=== PATIENT | female | born 1980 | race African-American/Black ===

== ENCOUNTER 2019-02-07 15:02 | Emergency (ER) | payer MEDICAID ==
[~2019-02-07] VITALS: Ht 167.6 cm; Wt 55.0 kg
[2019-02-07] MEDS ORDERED: MORPHINE SULFATE 4 MG/ML CPJ (NOT FOR IM USE) IV ONE (15:15)
[2019-02-07] MEDS ORDERED: KETOROLAC 30MG/ML VIAL IV ONE (15:15)
[2019-02-07 15:43] LABS: BASOPHILS % 0.2 % (0.0-2.0); EOSINOPHILS % 0.5 % (0.0-5.0); HEMATOCRIT. 42.3 % (36.0-48.0); HEMOGLOBIN. 14.5 g/dL (12.0-16.0); LYMPHOCYTES % 30.9 % (20.0-50.0); MEAN CORPUSCULAR HEMOGLOBIN 32.7 pg (28.0-32.0); MEAN CORPUSCULAR VOLUME 95.1 fL (81.0-99.0); NEUTROPHILS % 63.4 % (40.0-76.0); PLATELET 189 x1000/uL (130-400); RED BLOOD CELL COUNT 4.45 mill/uL (4.2-5.4)
[2019-02-07 15:49] LABS: CHLORIDE 99 mEq/L (98-107)
[2019-02-07 18:10] VITALS: BP 115/78
== END 2019-02-07 18:10 | disposition home or self-care (01) ==
LOC: ER 15:02
DX: R10.0 Acute abdomen (principal); R03.0 Elevated blood-pressure reading, without diagnosis of hypertension
CPT/HCPCS: 36415; 76830; 76856; 80053; 81025; 85025; 86850; 86900; 86901; 96374; 96375; 99284; J1885; J2270

== ENCOUNTER 2019-03-07 01:53 | Inpatient (IN) | payer MEDICAID ==
[~2019-03-07] VITALS: Ht 163.2 cm; Wt 55.0 kg
[2019-03-07] MEDS ORDERED: KETOROLAC 30MG/ML VIAL IV STA (02:59)
[2019-03-07] MEDS ORDERED: ONDANSETRON HCL 4MG/2ML INJ IV STA (02:59)
[2019-03-07] MEDS ORDERED: SODIUM CHLORIDE 0.9% 1,000 ML IV ONE (02:59)
[2019-03-07 03:41] LABS: HEMATOCRIT. 52.8 % (36.0-48.0); HEMOGLOBIN. 17.5 g/dL (12.0-16.0); MEAN CORPUSCULAR HEMOGLOBIN 31.2 pg (28.0-32.0); MEAN CORPUSCULAR VOLUME 93.8 fL (81.0-99.0); MEAN PLATELET VOLUME 8.8 fl (7.4-10.4); PLATELET 188 x1000/uL (130-400); RED BLOOD CELL COUNT 5.62 mill/uL (4.2-5.4); RED CELL DISTRIBUTION WIDTH 15.1 % (11.6-14.6)
[2019-03-07 03:44] LABS: CHLORIDE 108 mEq/L (98-107)
[2019-03-07 03:49] LABS: ETHANOL BLOOD < 10 mg/dL
[2019-03-07 03:56] LABS: HCG SCREEN NEGATIVE
[2019-03-07 04:33] LABS: CREATINE KINASE 145 IU/L (26-192)
[2019-03-07 04:40] LABS: PLATELET ESTIMATE NORMAL
[2019-03-07] MEDS ORDERED: MORPHINE SULFATE 2 MG/ML CPJ (NOT FOR IM USE) IV PRN (08:15)
[2019-03-07] MEDS ORDERED: HYDRALAZINE 20MG/ML VIAL IV PRN (08:15)
[2019-03-07] MEDS ORDERED: HYDRALAZINE 20MG/ML VIAL IV NR (08:15)
[2019-03-07] MEDS ORDERED: ONDANSETRON HCL 4MG/2ML INJ IV PRN (08:15)
[2019-03-07 08:55] VITALS: BP 163/101
[2019-03-07] MEDS: ENOXAPARIN 30MG/0.3ML SYR SUBCUT SCH (10:51)
[2019-03-07] MEDS: CEFTRIAXONE 1 G PREMIX 50 ML IV SCH (10:51)
[2019-03-07] MEDS: SODIUM CHLORIDE 0.9% 1,000 ML IV SCH ×2 (10:52→21:52)
[2019-03-07 12:00] VITALS: BP 148/102
[2019-03-07 16:00] VITALS: BP 148/99
[2019-03-07 20:00] VITALS: BP 149/97
[2019-03-07] MEDS: AMLODIPINE 5MG TABLET PO SCH (20:23)
[2019-03-07 22:05] VITALS: BP 149/97
[2019-03-07] MEDS ORDERED: HYDR50TA55 MT (22:37)
[2019-03-07] MEDS ORDERED: QUET300T19 MT (22:37)
[2019-03-07] MEDS ORDERED: FLUO-124 MT (22:37)
[2019-03-07 22:54] LABS: CLARITY URINE TURBID (CLEAR); COLOR URINE DARK YELLOW (YELLOW); KETONES URINE 1+ (NEGATIVE); LEUKOCYTE ESTERASE URINE 2+ (NEGATIVE); NITRITE URINE NEGATIVE (NEGATIVE); OCCULT BLOOD URINE 2+ (NEGATIVE); PROTEIN URINE 3+ (NEGATIVE); SPECIFIC GRAVITY URINE 1.018 (1.005-1.030)
[2019-03-07 23:11] LABS: *AMPHETAMINES SCREEN URINE NEGATIVE (NEGATIVE); *BARBITURATES SCREEN URINE NEGATIVE (NEGATIVE); *BENZODIAZEPINES SCREEN URINE NEGATIVE (NEGATIVE); *COCAINE SCREEN URINE NEGATIVE (NEGATIVE)
[2019-03-07 23:12] LABS: CANNABINOID URINE SCREEN NEGATIVE (NEGATIVE); METHADONE URINE SCREEN NEGATIVE (NEGATIVE); PHENCYCLIDINE URINE SCREEN NEGATIVE (NEGATIVE)
[2019-03-07 23:14] LABS: OPIATES URINE SCREEN NEGATIVE (NEGATIVE)
[2019-03-08] VITALS: BP 151/96
[2019-03-08 04:00] VITALS: BP 158/95
[2019-03-08] MEDS: SODIUM CHLORIDE 0.9% 1,000 ML IV SCH ×4 (04:28→22:21)
[2019-03-08 08:00] VITALS: BP 153/96
[2019-03-08 08:11] LABS: EOSINOPHILS % 0.2 % (0.0-5.0); HEMOGLOBIN. 14.1 g/dL (12.0-16.0); LYMPHOCYTES % 11.1 % (20.0-50.0); MEAN CORPUSCULAR HEMOGLOBIN 31.4 pg (28.0-32.0); MEAN CORPUSCULAR VOLUME 93.7 fL (81.0-99.0); MEAN PLATELET VOLUME 8.9 fl (7.4-10.4); MONOCYTES % 7.4 % (2.0-8.0); NEUTROPHILS % 80.3 % (40.0-76.0); PLATELET 134 x1000/uL (130-400); RED BLOOD CELL COUNT 4.48 mill/uL (4.2-5.4); RED CELL DISTRIBUTION WIDTH 14.9 % (11.6-14.6)
[2019-03-08] MEDS ORDERED: LIDOCAINE HCL/PF 1% 2ML VIAL ONE (08:36)
[2019-03-08] MEDS: FOLIC ACID 1MG TABLET PO SCH (08:44)
[2019-03-08] MEDS: MULTIVITAMINS,THER W-MINERALS TABLET PO SCH (08:45)
[2019-03-08] MEDS: THIAMINE HCL 100MG TABLET PO SCH (08:45)
[2019-03-08] MEDS: AMLODIPINE 5MG TABLET PO SCH ×2 (08:45→20:41)
[2019-03-08] MEDS: ENOXAPARIN 30MG/0.3ML SYR SUBCUT SCH (08:46)
[2019-03-08 09:03] LABS: PHOSPHORUS 0.5 mg/dL (2.5-4.9)
[2019-03-08] MEDS: CEFTRIAXONE 1 G PREMIX 50 ML IV SCH (10:26)
[2019-03-08] MEDS: CITRIC ACID/SODIUM CITRATE SOLN 15ML UDC PO SCH ×3 (10:51→16:59)
[2019-03-08 10:55] LABS: BG BASE EXCESS -12.3 mmol/L (-2.0-2.0); BG DEOXYHEMOGLOBIN 1.2 % (0.0-5.0); BG FRACTION INSPIRED OXYGEN 21; BG HCO3 ACT 10.3 mmol/L (22.0-26.0); BG METHEMOGLOBIN 0.2 % (0.0-1.5); BG OXYGEN SATURATION 98.8 % (92.0-98.5); BG OXYHEMOGLOBIN 97.6 % (94.0-97.0); BG PH 7.375 (7.350-7.450); BG SAMPLE SITE RIGHT RADIAL; BG TOTAL HEMOGLOBIN 13.8 g/dL (12.0-18.0); BG VENT MODE ROOM AIR
[2019-03-08] MEDS ORDERED: SODIUM PHOS,M-BASIC-D-BASIC 20 MM in DEXT 5% WATER 243.3333 ML IV NR (11:30)
[2019-03-08 12:00] VITALS: BP 157/103
[2019-03-08] MEDS ORDERED: MAGNESIUM 4 G PREMIX 100 ML IV NR (12:00)
[2019-03-08 16:00] VITALS: BP 140/97
[2019-03-08 20:00] VITALS: BP 116/93
[2019-03-09 00:38] VITALS: BP 150/102
[2019-03-09 04:00] VITALS: BP 126/85
[2019-03-09 06:40] LABS: BASOPHILS % 1.3 % (0.0-2.0); EOSINOPHILS % 2.6 % (0.0-5.0); HEMATOCRIT. 36.6 % (36.0-48.0); HEMOGLOBIN. 12.7 g/dL (12.0-16.0); MEAN CORPUSCULAR HEMOGLOBIN 31.8 pg (28.0-32.0); MEAN CORPUSCULAR VOLUME 91.9 fL (81.0-99.0); MEAN PLATELET VOLUME 8.8 fl (7.4-10.4); MONOCYTES % 7.5 % (2.0-8.0); NEUTROPHILS % 67.6 % (40.0-76.0); PLATELET 118 x1000/uL (130-400); RED BLOOD CELL COUNT 3.98 mill/uL (4.2-5.4); RED CELL DISTRIBUTION WIDTH 14.5 % (11.6-14.6)
[2019-03-09 07:20] LABS: PHOSPHORUS 1.5 mg/dL (2.5-4.9)
[2019-03-09 08:00] VITALS: BP 140/90
[2019-03-09] MEDS: CITRIC ACID/SODIUM CITRATE SOLN 15ML UDC PO SCH ×3 (09:11→17:27)
[2019-03-09] MEDS: AMLODIPINE 5MG TABLET PO SCH ×2 (09:11→20:56)
[2019-03-09] MEDS: ENOXAPARIN 30MG/0.3ML SYR SUBCUT SCH (09:12)
[2019-03-09] MEDS: SODIUM CHLORIDE 0.9% 1,000 ML IV SCH ×2 (09:13→21:26)
[2019-03-09] MEDS: FOLIC ACID 1MG TABLET PO SCH (09:30)
[2019-03-09] MEDS: THIAMINE HCL 100MG TABLET PO SCH (09:30)
[2019-03-09] MEDS: MULTIVITAMINS,THER W-MINERALS TABLET PO SCH (09:30)
[2019-03-09] MEDS ORDERED: POTASSIUM CHLORIDE 20MEQ/PACKET PO NR (10:30)
[2019-03-09] MEDS ORDERED: MAGNESIUM 2 G PREMIX 50 ML IV NR (11:00)
[2019-03-09] MEDS: CEFTRIAXONE 1 G PREMIX 50 ML IV SCH (11:01)
[2019-03-09 12:00] VITALS: BP 121/79
[2019-03-09] MEDS ORDERED: POTASSIUM PHOS,M-BASIC-D-BASIC 15 MMOL in DEXTROSE 5% WATER 250 ML IV NR (14:00)
[2019-03-09 16:00] VITALS: BP 130/89
[2019-03-09 18:54] LABS: CLARITY URINE CLEAR (CLEAR); COLOR URINE YELLOW (YELLOW); KETONES URINE NEGATIVE (NEGATIVE); LEUKOCYTE ESTERASE URINE TRACE (NEGATIVE); NITRITE URINE NEGATIVE (NEGATIVE); OCCULT BLOOD URINE 2+ (NEGATIVE); PH URINE 5.5 (4.5-8.0); PROTEIN URINE NEGATIVE (NEGATIVE); SPECIFIC GRAVITY URINE 1.006 (1.005-1.030); UROBILINOGEN URINE 0.2 E.U./dL (0.2-1.0)
[2019-03-09 20:00] VITALS: BP 129/86
[2019-03-10] VITALS (17 sets, daily range): BP systolic 108–130; BP diastolic 46–92
[2019-03-10 07:24] LABS: PARTIAL THROMBOPLASTIN TIME 29.1 sec (23.4-31.0); PROTHROMBIN TIME 10.5 sec (9.6-11.0)
[2019-03-10 07:26] LABS: BASOPHILS % 1.1 % (0.0-2.0); EOSINOPHILS % 5.2 % (0.0-5.0); HEMATOCRIT. 33.5 % (36.0-48.0); HEMOGLOBIN. 11.5 g/dL (12.0-16.0); LYMPHOCYTES % 29.4 % (20.0-50.0); MEAN CORPUSCULAR HEMOGLOBIN 31.8 pg (28.0-32.0); MEAN CORPUSCULAR VOLUME 92.8 fL (81.0-99.0); MEAN PLATELET VOLUME 9.2 fl (7.4-10.4); MONOCYTES % 7.8 % (2.0-8.0); NEUTROPHILS % 56.5 % (40.0-76.0); PLATELET 132 x1000/uL (130-400); RED BLOOD CELL COUNT 3.61 mill/uL (4.2-5.4); RED CELL DISTRIBUTION WIDTH 14.6 % (11.6-14.6)
[2019-03-10] MEDS ORDERED: FENTANYL CITRATE/PF 50MCG/ML 2ML VIAL ONE (07:58)
[2019-03-10] MEDS: FOLIC ACID 1MG TABLET PO SCH (08:09)
[2019-03-10] MEDS: CITRIC ACID/SODIUM CITRATE SOLN 15ML UDC PO SCH ×3 (08:09→17:26)
[2019-03-10] MEDS: THIAMINE HCL 100MG TABLET PO SCH (08:09)
[2019-03-10] MEDS: AMLODIPINE 5MG TABLET PO SCH ×2 (08:09→22:02)
[2019-03-10] MEDS: SODIUM CHLORIDE 0.9% 1,000 ML IV SCH ×2 (08:10→13:35)
[2019-03-10] MEDS: MULTIVITAMINS,THER W-MINERALS TABLET PO SCH (08:12)
[2019-03-10] MEDS ORDERED: LIDOCAINE HCL 1% 20ML VIAL (Pyxis) INJ ONE (08:13)
[2019-03-10] MEDS ORDERED: SODIUM BICARBONATE 4% (2.4MEQ) 5ML VIAL IV ONE (08:13)
[2019-03-10 08:34] LABS: PHOSPHORUS 2.8 mg/dL (2.5-4.9)
[2019-03-10] MEDS ORDERED: FENTANYL CITRATE/PF 50MCG/ML 2ML VIAL IV ONE (08:45)
[2019-03-10] MEDS: CEFTRIAXONE 1 G PREMIX 50 ML IV SCH (10:50)
[2019-03-10 12:33] LABS: HEMATOCRIT 33.5 % (36.0-48.0); HEMOGLOBIN 11.1 g/dL (12.0-16.0)
[2019-03-11] VITALS: BP 110/80
[2019-03-11 04:00] VITALS: BP 114/80
[2019-03-11 08:00] VITALS: BP 104/76
[2019-03-11 08:12] LABS: BASOPHILS % 1.4 % (0.0-2.0); EOSINOPHILS % 6.2 % (0.0-5.0); HEMATOCRIT. 30.8 % (36.0-48.0); HEMOGLOBIN. 10.4 g/dL (12.0-16.0); LYMPHOCYTES % 25.9 % (20.0-50.0); MEAN CORPUSCULAR HEMOGLOBIN 31.5 pg (28.0-32.0); MEAN CORPUSCULAR VOLUME 93.4 fL (81.0-99.0); MEAN PLATELET VOLUME 9.1 fl (7.4-10.4); NEUTROPHILS % 56.5 % (40.0-76.0); PLATELET 138 x1000/uL (130-400); RED BLOOD CELL COUNT 3.29 mill/uL (4.2-5.4); RED CELL DISTRIBUTION WIDTH 14.4 % (11.6-14.6)
[2019-03-11 08:14] LABS: PHOSPHORUS 3.4 mg/dL (2.5-4.9)
[2019-03-11] MEDS: AMLODIPINE 5MG TABLET PO SCH ×2 (08:23→21:34)
[2019-03-11] MEDS: FOLIC ACID 1MG TABLET PO SCH (08:44)
[2019-03-11] MEDS: MULTIVITAMINS,THER W-MINERALS TABLET PO SCH (08:44)
[2019-03-11] MEDS: CITRIC ACID/SODIUM CITRATE SOLN 15ML UDC PO SCH ×3 (08:44→17:48)
[2019-03-11] MEDS: THIAMINE HCL 100MG TABLET PO SCH (08:44)
[2019-03-11] MEDS ORDERED: POTASSIUM CHLORIDE 20MEQ TABLET SR PO SCH (09:00)
[2019-03-11] MEDS: CEFTRIAXONE 1 G PREMIX 50 ML IV SCH (09:53)
[2019-03-11] MEDS: SODIUM CHLORIDE 0.9% 1,000 ML IV SCH ×2 (09:54→17:49)
[2019-03-11] MEDS ORDERED: POTASSIUM CHLORIDE INJ 40 MEQ in DEXT 5% WATER 250 ML IV SCH (10:00)
[2019-03-11 12:00] VITALS: BP 187/83
[2019-03-11 16:00] VITALS: BP 107/81
[2019-03-11 20:00] VITALS: BP 123/57
[2019-03-12] VITALS: BP 102/66
[2019-03-12] MEDS: SODIUM CHLORIDE 0.9% 1,000 ML IV SCH ×4 (00:04→20:18)
[2019-03-12 04:00] VITALS: BP 116/53
[2019-03-12 06:36] LABS: EOSINOPHILS % 6.1 % (0.0-5.0); HEMATOCRIT. 29.3 % (36.0-48.0); MEAN CORPUSCULAR HEMOGLOBIN 31.7 pg (28.0-32.0); MEAN CORPUSCULAR VOLUME 92.9 fL (81.0-99.0); MEAN PLATELET VOLUME 8.9 fl (7.4-10.4); MONOCYTES % 13.6 % (2.0-8.0); NEUTROPHILS % 52.3 % (40.0-76.0); PLATELET 200 x1000/uL (130-400); RED BLOOD CELL COUNT 3.16 mill/uL (4.2-5.4); RED CELL DISTRIBUTION WIDTH 14.2 % (11.6-14.6)
[2019-03-12 06:49] LABS: CHLORIDE 111 mEq/L (98-107)
[2019-03-12 08:00] VITALS: BP 116/72
[2019-03-12 08:07] LABS: COMPLEMENT C3 95 mg/dL (82-167)
[2019-03-12] MEDS: MULTIVITAMINS,THER W-MINERALS TABLET PO SCH (09:06)
[2019-03-12] MEDS: AMLODIPINE 5MG TABLET PO SCH ×2 (09:06→20:12)
[2019-03-12] MEDS: FOLIC ACID 1MG TABLET PO SCH (09:06)
[2019-03-12] MEDS: THIAMINE HCL 100MG TABLET PO SCH (09:06)
[2019-03-12] MEDS: CITRIC ACID/SODIUM CITRATE SOLN 15ML UDC PO SCH ×3 (09:06→17:24)
[2019-03-12] MEDS: CEFTRIAXONE 1 G PREMIX 50 ML IV SCH (10:36)
[2019-03-12 12:00] VITALS: BP 118/79
[2019-03-12 16:00] VITALS: BP 114/85
[2019-03-12 20:00] VITALS: BP 114/71
[2019-03-13] VITALS: BP 120/77
[2019-03-13] MEDS: SODIUM CHLORIDE 0.9% 1,000 ML IV SCH ×3 (02:10→10:35)
[2019-03-13 04:00] VITALS: BP 125/75
[2019-03-13 08:00] VITALS: BP 105/63
[2019-03-13] MEDS: FOLIC ACID 1MG TABLET PO SCH (09:00)
[2019-03-13] MEDS: THIAMINE HCL 100MG TABLET PO SCH (09:00)
[2019-03-13] MEDS: AMLODIPINE 5MG TABLET PO SCH (09:00)
[2019-03-13] MEDS: CITRIC ACID/SODIUM CITRATE SOLN 15ML UDC PO SCH ×2 (09:00→15:28)
[2019-03-13] MEDS: MULTIVITAMINS,THER W-MINERALS TABLET PO SCH (09:00)
[2019-03-13 09:36] LABS: HEMATOCRIT. 28.3 % (36.0-48.0); HEMOGLOBIN. 9.6 g/dL (12.0-16.0); MEAN CORPUSCULAR HEMOGLOBIN 31.5 pg (28.0-32.0); MEAN PLATELET VOLUME 8.6 fl (7.4-10.4); PLATELET 292 x1000/uL (130-400); RED BLOOD CELL COUNT 3.05 mill/uL (4.2-5.4); RED CELL DISTRIBUTION WIDTH 14.7 % (11.6-14.6)
[2019-03-13 10:02] LABS: CHLORIDE 109 mEq/L (98-107)
[2019-03-13] MEDS: CEFTRIAXONE 1 G PREMIX 50 ML IV SCH (10:34)
[2019-03-13 12:00] VITALS: BP 114/65
[2019-03-13 12:26] LABS: PLATELET ESTIMATE NORMAL
[2019-03-13 16:00] VITALS: BP 106/70
[2019-03-13 16:23] VITALS: BP 114/65
== END 2019-03-13 18:50 | disposition home or self-care (01) | DRG 720 ==
LOC: ER 01:53 → 5WST 04:39 → ENRESERV 07:50
PROVIDERS: ADMIT Internal Medicine; ATTEND Internal Medicine
PROC: 0TB14ZX Excision of Left Kidney, Percutaneous Endoscopic Approach, Diagnostic (ICD-10-PCS; principal; 2019-03-10)
DX: A41.9 Sepsis, unspecified organism (principal); N17.0 Acute kidney failure with tubular necrosis; K85.20 Alcohol induced acute pancreatitis without necrosis or infection; E87.2 Acidosis; E11.22 Type 2 diabetes mellitus with diabetic chronic kidney disease; E83.52 Hypercalcemia; I42.9 Cardiomyopathy, unspecified; E11.65 Type 2 diabetes mellitus with hyperglycemia; E87.8 Other disorders of electrolyte and fluid balance, not elsewhere classified; F10.10 Alcohol abuse, uncomplicated; I12.9 Hypertensive chronic kidney disease with stage 1 through stage 4 chronic kidney disease, or unspecified chronic kidney disease; F17.210 Nicotine dependence, cigarettes, uncomplicated; N83.209 Unspecified ovarian cyst, unspecified side; F31.9 Bipolar disorder, unspecified; N39.0 Urinary tract infection, site not specified; K57.90 Diverticulosis of intestine, part unspecified, without perforation or abscess without bleeding; K76.0 Fatty (change of) liver, not elsewhere classified; Z87.19 Personal history of other diseases of the digestive system; G43.909 Migraine, unspecified, not intractable, without status migrainosus; Z71.6 Tobacco abuse counseling; N18.2 Chronic kidney disease, stage 2 (mild); K52.9 Noninfective gastroenteritis and colitis, unspecified; E86.0 Dehydration; Z79.84 Long term (current) use of oral hypoglycemic drugs
CPT/HCPCS: 36415; 36600; 74176; 76700; 76770; 76942; 80048; 80305; 80320; 82010; 82270; 82375; 82550; 82570; 82805; 83036; 83605; 83735; 84100; 84145; 84156; 84703; 85014; 85018; 86038; 86160; 87015; 87045; 87077; 87186; 87427; 87449; 88305; 88346; 88348; 96374; 96375; 99285; J0360; J0696; J1650; J1885; J2405; J3010; J3475; J3480; J3490; J7030; J7060; G0480

== ENCOUNTER 2019-11-10 16:53 | Inpatient (IN) | payer MEDICAID ==
[~2019-11-10] VITALS: Ht 165.1 cm; Wt 59.9 kg
[~2019-11-10 16:53] MED LIST: FLUO20CA39 MT; HYDR50TA55 MT; QUET300T19 MT
[2019-11-10] MEDS ORDERED: SODIUM CHLORIDE 0.9% 1,000 ML IV ONE ×3 (17:55→20:00)
[2019-11-10] MEDS ORDERED: ONDANSETRON HCL 4MG/2ML INJ IV STA (17:55)
[2019-11-10 18:08] LABS: BASOPHILS % 0.6 % (0.0-2.0); EOSINOPHILS % 0.4 % (0.0-5.0); HEMATOCRIT. 43.2 % (36.0-48.0); HEMOGLOBIN. 14.7 g/dL (12.0-16.0); LYMPHOCYTES % 14.4 % (20.0-50.0); MEAN CORPUSCULAR HEMOGLOBIN 33.3 pg (28.0-32.0); MEAN CORPUSCULAR VOLUME 97.7 fL (81.0-99.0); MEAN PLATELET VOLUME 9.8 fl (7.4-10.4); MONOCYTES % 8.9 % (2.0-8.0); NEUTROPHILS % 75.7 % (40.0-76.0); PLATELET 80 x1000/uL (130-400); RED BLOOD CELL COUNT 4.43 mill/uL (4.2-5.4); RED CELL DISTRIBUTION WIDTH 14.8 % (11.6-14.6)
[2019-11-10 18:12] LABS: CHLORIDE 93 mEq/L (98-107)
[2019-11-10 18:13] LABS: PROTHROMBIN TIME 10.7 sec (9.6-11.0)
[2019-11-10 20:55] LABS: CLARITY URINE CLOUDY (CLEAR); COLOR URINE YELLOW (YELLOW); KETONES URINE 1+ (NEGATIVE); LEUKOCYTE ESTERASE URINE NEGATIVE (NEGATIVE); NITRITE URINE NEGATIVE (NEGATIVE); OCCULT BLOOD URINE 2+ (NEGATIVE); PROTEIN URINE 2+ (NEGATIVE); SPECIFIC GRAVITY URINE 1.024 (1.005-1.030)
[2019-11-10 22:15] VITALS: BP 142/89
[2019-11-10] MEDS ORDERED: MORPHINE SULFATE 2 MG/ML CPJ (NOT FOR IM USE) IV PRN (23:00)
[2019-11-10] MEDS ORDERED: ONDANSETRON HCL 4MG/2ML INJ IV PRN (23:15)
[2019-11-11] VITALS: BP 140/97
[2019-11-11 01:08] VITALS: BP 140/97
[2019-11-11] MEDS: DEXT 5%/0.45% NACL KCL 20MEQ/L 1,000 ML IV SCH ×3 (02:11→15:27)
[2019-11-11 04:00] VITALS: BP 119/88
[2019-11-11 07:07] LABS: CHLORIDE 106 mEq/L (98-107)
[2019-11-11 07:09] LABS: BASOPHILS % 0.9 % (0.0-2.0); EOSINOPHILS % 1.1 % (0.0-5.0); HEMATOCRIT. 33.6 % (36.0-48.0); HEMOGLOBIN. 11.5 g/dL (12.0-16.0); LYMPHOCYTES % 22.2 % (20.0-50.0); MEAN CORPUSCULAR HEMOGLOBIN 33.1 pg (28.0-32.0); MEAN CORPUSCULAR VOLUME 96.5 fL (81.0-99.0); MEAN PLATELET VOLUME 9.5 fl (7.4-10.4); MONOCYTES % 6.4 % (2.0-8.0); NEUTROPHILS % 69.4 % (40.0-76.0); PLATELET 69 x1000/uL (130-400); RED BLOOD CELL COUNT 3.48 mill/uL (4.2-5.4); RED CELL DISTRIBUTION WIDTH 14.6 % (11.6-14.6)
[2019-11-11 07:16] LABS: AMYLASE 119 IU/L (25-115)
[2019-11-11 08:00] VITALS: BP 120/74
[2019-11-11] MEDS: PANTOPRAZOLE SODIUM 40 MG/VIAL IV SCH (09:46)
[2019-11-11] MEDS ORDERED: POTASSIUM CHLORIDE 20MEQ TABLET SR PO NR ×2 (15:15→18:15)
[2019-11-11 16:00] VITALS: BP 144/86
[2019-11-11 20:00] VITALS: BP 162/101
[2019-11-11] MEDS ORDERED: CLONIDINE 0.1MG TABLET PO PRN (20:15)
[2019-11-12] VITALS: BP 127/93
[2019-11-12] MEDS: DEXT 5%/0.45% NACL KCL 20MEQ/L 1,000 ML IV SCH ×2 (02:01→12:46)
[2019-11-12 04:00] VITALS: BP 138/93
[2019-11-12] MEDS: PANTOPRAZOLE SODIUM 40 MG/VIAL IV SCH (04:55)
[2019-11-12 06:39] LABS: CHLORIDE 102 mEq/L (98-107)
[2019-11-12 07:08] LABS: EOSINOPHILS % 2.4 % (0.0-5.0); HEMATOCRIT. 32.9 % (36.0-48.0); HEMOGLOBIN. 11.3 g/dL (12.0-16.0); LYMPHOCYTES % 28.8 % (20.0-50.0); MEAN CORPUSCULAR HEMOGLOBIN 33.4 pg (28.0-32.0); MEAN CORPUSCULAR VOLUME 97.1 fL (81.0-99.0); MEAN PLATELET VOLUME 9.7 fl (7.4-10.4); MONOCYTES % 7.2 % (2.0-8.0); NEUTROPHILS % 60.6 % (40.0-76.0); PLATELET 86 x1000/uL (130-400); RED BLOOD CELL COUNT 3.39 mill/uL (4.2-5.4); RED CELL DISTRIBUTION WIDTH 14.6 % (11.6-14.6)
[2019-11-12 08:00] VITALS: BP 134/90
[2019-11-12 12:00] VITALS: BP 136/88
[2019-11-12] MEDS ORDERED: AMLO5TAB88 MT (13:47)
[2019-11-12 14:18] VITALS: BP 136/88
== END 2019-11-12 15:40 | disposition home or self-care (01) | DRG 282 ==
LOC: ER 16:53 → 6EST 19:55 → EDBEDREQ 20:01 → ENRESERV 20:27 → 7WST 23:47 → 6WST 11-11 12:35
PROVIDERS: ADMIT Internal Medicine; ATTEND Internal Medicine
DX: K85.90 Acute pancreatitis without necrosis or infection, unspecified (principal); N17.0 Acute kidney failure with tubular necrosis; E87.1 Hypo-osmolality and hyponatremia; I10 Essential (primary) hypertension; E87.8 Other disorders of electrolyte and fluid balance, not elsewhere classified; F10.10 Alcohol abuse, uncomplicated; F31.9 Bipolar disorder, unspecified; G43.909 Migraine, unspecified, not intractable, without status migrainosus; F17.210 Nicotine dependence, cigarettes, uncomplicated; Z71.6 Tobacco abuse counseling
CPT/HCPCS: 36415; 71045; 76700; 80048; 80053; 81003; 82150; 85025; 93005; 99285; C9113; J2405; J7030